=== PATIENT | female | born 1955 | race Caucasian/White ===

== ENCOUNTER 2018-07-09 11:29 | Emergency (ER) | payer OTHER ==
[2018-07-09] MEDS ORDERED: oxyCODONE 5 MG TABLET PO STA (12:36)
--- NOTE | 2018-07-09 12:37 | ED Physician Documentation ---
PD HPI UPPER EXT INJURY - Stated complaint Stated Complaint: LEFT SHOULDER INJ - Chief complaint Chief Complaint: Ext Problem - History obtained from History obtained from: Patient - History of Present Illness Location: Left (She was on a treadmill this morning and closed her eyes, did not fall asleep and fell off the treadmill. She fell backwards. She hit her head and left shoulder and left forearm. She has no headache and there was no loss of consciousness. She complains only of severe left shoulder and arm pain.) Review of Systems Constitutional: denies: Fever, Chills GI: denies: Abdominal Pain, Nausea, Vomiting Musculoskeletal: denies: Pain with weight bearing Neurologic: denies: Headache, Head injury PD PAST MEDICAL HISTORY - Past Medical History Past Medical History: No - Past Surgical History Past Surgical History: Yes /[employer]: Hysterectomy - Present Medications Home Medications: Ambulatory Orders Medication Instructions Recorded Confirmed Estrogens, Conjugated [Premarin] 0.3 mg PO .QWEEK 07/09/18 07/09/18 Hydrocodone/Acetaminophen 1 - 2 each PO Q6H PRN #20 tablet 07/09/18 [Hydrocodon-Acetaminophen 5-325] - Allergies Allergies/Adverse Reactions: Allergies Allergy/AdvReac Type Severity Reaction Status Date / Time No Known Drug Allergies Allergy Verified 07/09/18 11:44 - Social History Does the pt smoke?: No Smoking Status: Never smoker Does the pt drink ETOH?: Yes Does the pt have substance abuse?: No - Immunizations Immunizations are current?: Yes - POLST Patient has POLST: No PD ED PE NORMAL - Vitals Vital signs reviewed: Yes - General General: Alert and oriented X 3, No acute distress - HEENT HEENT: PERRL, EOMI - Neck Neck: Supple, no meningeal sign, No bony TTP - Extremities Extremities: Other (Quite tender to the upper humerus and cannot range the shoulder at all. She also has mild tenderness to the mid left forearm. She has normal neurovascular status in the hand. Strength is somewhat limited by pain.) - Neuro Neuro: Alert and oriented X 3, Normal speech Results - Vitals Vitals: Vital Signs - 24 hr 07/09/18 07/09/18 11:42 13:09 Temperature 36.6 C Heart Rate 82 80 Respiratory 16 16 Rate Blood Pressure 114/68 114/70 O2 Saturation 100 100 Oxygen O2 Source Room air - Rads (name of study) XR L shoulder and forearm Radiology: EMP read contemporaneously (Left humeral neck fracture without forearm fracture) PD MEDICAL DECISION MAKING - ED course ED course: 63-year-old woman who is visiting from [place] and had his isolated left arm injury after a fall from a treadmill and is found to have a humeral neck fracture. She was placed in a sling and given a copy of her x-ray for follow-up near home where she is going back tomorrow. Departure - Departure Disposition: 01 Home, Self Care Clinical Impression: Left humeral fracture, Pain in extremity Condition: Good Record reviewed to determine appropriate education?: Yes Instructions: ED Fx Upper Ext Prescriptions: Hydrocodone/Acetaminophen [Hydrocodon-Acetaminophen 5-325] 1 - 2 each PO Q6H PRN #20 tablet PRN Reason: pain Comments: Keep the arm in a sling for comfort. Follow-up with an orthopedic surgeon within the week near home. Take the copy of the x-rays with you for that appointment. Do not drink or drive while taking narcotic pain medication. Note that many narcotic pain relievers also contain Tylenol/acetaminophen. Please ensure that your total dose of acetaminophen from all sources does not exceed 3 g (3000 mg) per day. You may get constipated while on this medication. Take a stool softener such as Colace twice a day while you are on it. Also add an [id number] laxative such as senna or MiraLAX on any day that you do not have a bowel movement. If you received a narcotic pain medication or sedative while in the emergency department, do not drive for the next 24 hours. Discharge Date/Time: 07/09/18 13:09
--- NOTE | 2018-07-09 12:46 | XRAY Report ---
Reason: pain after fall Procedure Date: 07/09/2018 Accession Number: [id number] / [id number] Procedure: XR - Shoulder 3 View LT CPT Code: FULL RESULT: EXAM: LEFT SHOULDER RADIOGRAPHY EXAM DATE: 07/09/2018 12:02 PM. CLINICAL HISTORY: Pain after fall. COMPARISON: None. TECHNIQUE: 3 views. FINDINGS: Bones: Acute transverse, mildly displaced left humerus neck fracture with 2 mm of lateral displacement of the diaphysis shaft fragment. No fracture of the left scapula or clavicle. Joints: Moderate acromioclavicular joint narrowing, osteophytosis, and subchondral sclerosis. Mild glenohumeral joint narrowing, osteophytosis, and subchondral sclerosis. Normal alignment of the shoulder joint. Soft tissues: The visualized hemithorax is unremarkable. No soft tissue swelling. IMPRESSION: 1. Acute, displaced transverse fracture of the left humerus neck. 2 mm of lateral displacement of the humerus diaphysis fragment. 2. Normal alignment. 3. Moderate left acromioclavicular joint arthritis. [facility]
[2018-07-09 13:10] VITALS: BP 114/70
--- NOTE | 2018-07-09 13:12 | XRAY Report ---
Reason: arm pain Procedure Date: 07/09/2018 Accession Number: [id number] / [id number] Procedure: XR - Forearm LT CPT Code: FULL RESULT: EXAM: LEFT FOREARM RADIOGRAPHY EXAM DATE: 07/09/2018 12:49 PM. CLINICAL HISTORY: Arm pain. COMPARISON: SHOULDER 3 VIEW LT 07/09/2018 11:50 AM. TECHNIQUE: 2 views. FINDINGS: Bones: Normal. No fractures or bone lesions. Joints: Normal. No effusions or subluxations in the visualized wrist or elbow joints. Soft Tissues: Normal. No soft tissue swelling. IMPRESSION: Normal forearm radiography. [facility]
== END 2018-07-09 13:09 | disposition home or self-care (01) ==
LOC: ED 11:29
DX: S42.292A Other displaced fracture of upper end of left humerus, initial encounter for closed fracture (principal); M79.632 Pain in left forearm; W17.89XA Other fall from one level to another, initial encounter; Y93.A1 Activity, exercise machines primarily for cardiorespiratory conditioning; M19.012 Primary osteoarthritis, left shoulder
CPT/HCPCS: 73030; 73090; 99283; A9270